=== PATIENT | female | born 1965 | race Caucasian/White ===

== ENCOUNTER 2021-01-21 05:17 | Day surgery (SDC) | payer OTHER, SELFPAY ==
--- NOTE | 2021-01-15 08:26 | EKG12_ITS ---
Test Reason : PRE OP Blood Pressure : / mmHG Vent. Rate : 066 BPM Atrial Rate : 066 BPM P-R Int : 142 ms QRS Dur : 076 ms QT Int : 404 ms P-R-T Axes : 064 030 060 degrees QTc Int : 423 ms Normal sinus rhythm Low voltage QRS Septal infarct , age undetermined , cannot be excluded Abnormal ECG Confirmed by ALYSON SHANKAR, JEREMY ([id number]), magazine editor LAVINIA CHACKO ([id number]) on 01/18/2021 7:26:13 AM Referred By: Kwaku Robert Confirmed By:JEREMY SHIELDS MD
[2021-01-15 10:46] LABS: Hematocrit 43.3 % (37-47); Mean Corp Hgb Conc 32.3 g/dL (32-36); Mean Corpuscular Hgb 29.2 pg (27.0-32.0); Mean Corpuscular Volume 90.4 fL (81-99); Mean Platelet Vol. 10.8 fl (6.2-12.0); Platelet Count 277 K/mm3 (150-450); RBC Distribution Width CV 13.4 % (11.6-14.6); RBC Distribution Width SD 44.6 fl (35.1-43.9); Red Blood Count 4.79 M/mm3 (4.2-5.4); White Blood Count 6.8 K/mm3 (4.4-11.0)
[2021-01-15 11:07] LABS: Anion Gap 6 (5-15); BUN 14 mg/dL (7-18); BUN/Creat Ratio 13.7 RATIO (10-20); Calcium,Total 9.5 mg/dL (8.5-10.1); Chloride 106 mmol/L (98-107); Creatinine, Serum 1.02 mg/dL (0.55-1.02); EST Glomerular Filtration Rate 60 mL/min (>60); Est Glom Filt Rate - Afr Amer 72 mL/min (>60); Glucose 99 mg/dL (74-106); Potassium 4.4 mmol/L (3.5-5.1); Sodium Level 141 mmol/L (136-145)
[2021-01-21] VITALS (10 sets, daily range): BP systolic 92–149; BP diastolic 57–71; PULSE 55–82; RESP 16–18; TEMP 36.2–36.9; O2SAT 94–100; BMI 33.4
[2021-01-21] MEDS: Lactated Ringers 1,000 ML 40 ML IV (05:55)
[2021-01-21 05:57] LABS: Internal QC Validated? YES +Cl - CLEAR BKGD; Pregnancy, Urine Negative Negative
[2021-01-21] MEDS: Gabapentin 600 MG Tablet PO (06:20)
[2021-01-21] MEDS: Acetaminophen 500 MG Tablet 1000 MG PO ×2 (06:20→12:00)
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
[2021-01-21 07:00] LABS: Bedside Glucose 106 mg/dL (70-110)
[2021-01-21] MEDS: Cefazolin 2 GM in 0.9% Normal Saline 100 ML IV (07:25)
--- NOTE | 2021-01-21 07:30 | HYST_PTH ---
PATIENT: CECI MADRID LOC: [facility] [place] U#:[id number] AGE/SX: 55/F ROOM: RE01/21/[address]: Dr. Kwaku Robert MD : 1965 BED: DIS: 01/21/2021 SPEC #: [id number] RECD: 01/21/21 12:47 STATUS: FRANK REHumberto #: [id number] VIKAS: 01/21/21 07:[address]: Kwaku Robert DEPT: SURGICAL PATHOLOGY RECD BY: Lena Sky ENTERED: 01/22/21 08:43 SP TYPE: HYSTERECT OTHR DR: MD Dr. Margie Sheridan DO Tissues: Uterus, NOS Procedures: Surgery Specimen Level V HEADER OPERATION: ERAS, lap robotic TLH hysterectomy, bilateral salpingectomy, cysto PRE-OP DIAGNOSIS: Abnormal uterine and vaginal bleeding TISSUE SUBMITTED: Uterus, cervix and bilateral fallopian tubes MICROSCOPIC DIAGNOSIS Uterus, cervix and bilateral fallopian tubes, hysterectomy and bilateral salpingectomy: Cervix ? chronic inflammation. Endometrium ? proliferative endometrium. Myometrium ? intramural and subserosal leiomyomas. - Focal adenomyosis. Bilateral fallopian tubes - no pathologic diagnosis. SJ:cindy 01/25/2021 MICROSCOPIC DESCRIPTION Slides are reviewed. GROSS DESCRIPTION Received in fixative is one container labeled with the patient's name and designated uterus, cervix, bilateral fallopian tubes. The specimen consists of a hysterectomy specimen consisting of uterus in multiple pieces and detached bilateral fallopian tubes. The uterus in multiple pieces weighs in aggregate 305 gm. The largest piece of uterus with proximal cervix measures 10 x 9 x 9.5 cm. Detached pieces of uterus measures in aggregate 6 x 5 x 3 cm. The ectocervix could not be definitely identified. The uterus is markedly distorted. The anterior and posterior surface could not be oriented. The largest piece of uterus contains the proximal cervix which measures 2 cm in length. The endocervical canal measures 2 cm in length. The endocervical mucosa is unremarkable. Sections of the cervix reveal a few cysts filled with mucoid material. The endometrial cavity measures 4.5 cm in length and up to 3 cm in width. The endometrium is lieberman, glistening without any mass lesion and measures up to 0.2 cm in thickness. Sections of the uterine wall reveal multiple nodular masses, intramural and subserosal in location, largest measuring 3.0 cm in greatest dimension. The uterine wall measures up to 3.5 cm in thickness. Sections of these masses reveal lieberman whorled cut surfaces without areas of hemorrhage, necrosis or cystic degeneration. One fallopian tube measures 5 cm in length and 0.5 cm in diameter. The fimbrial end is identified. .Sections reveal unremarkable cut surfaces. Second fallopian tube measures 3.5 cm in length and 0.5 cm in diameter. The fimbrial end is identified. Sections reveal unremarkable cut surfaces. Shoe Puller sections are submitted in 12 cassettes as follows: 1 - possible ectocervix, 2 - endocervix, 3-6 - uterine wall including endomyometrium, 7 & 8 - largest nodular mass, 9 - second largest nodular mass, 10 - third largest nodular mass, 11 & 12 - bilateral fallopian tubes with each cassette containing one fallopian tube. / ROSE:cindy 01/22/21 TC:1 CPT: 80011
[2021-01-21] MEDS: Ondansetron 4 MG/2 ML Vial IV (10:33)
--- NOTE | 2021-01-21 11:30 | PCM.DC ---
Discharge Instructions Diet Discharge Diet: No restrictions Activity Discharge Activity: Return to Normal Activity, May Drive and May Shower May resume sexual activity in: 4-6 weeks Lifting Restrictions: No lifting over 25 pounds for 2 to 3 weeks Dressing / Incision Call your doctor if your incision/area has: Continuous Slow Oozing and Foul Smelling Discharge Call your doctor if you observe: Fever of 101 or Higher, Shortness of breath and Chest pain Follow Up Care Please Follow Up With: Kwaku Robert MD When: 2 weeks postoperatively Test Results: Test results from this visit will be discussed in further detail at your follow-up appointment, if applicable. Discharge Plan Admission Primary Reason for Your Visit: Hysterectomy Attending Provider: Kwaku Robert Primary Care Provider: Margie Tobin Consulting Providers: Jerzy Barajas Additional Instructions / Restrictions: No lifting over 25 pounds for 2 to 3 weeks[address] No [address] on narcotics. May shower. No tub baths for 2 weeks. Regular diet. Otherwise normal activity. No intercourse for 4 to 6 weeks. Call if fever 101, chest pain, shortness of breath. Follow-up 2 weeks postoperatively, Kwaku Robert MD Discharge Orders/Prescriptions Prescriptions: New oxycodone 5 mg Tablet 5 mg PO Q6H PRN PRN (Reason: Pain Score 7-10/10) 5 Days Qty: 20 RF: 0 Continued sertraline [Zoloft] 100 mg Tablet 100 mg PO DAILY RF: 0 ferrous sulfate 324 mg (65 mg iron) Tablet,Delayed Release (Dr/Ec) 324 mg PO PRN PRN (Reason: DURING MENSES) RF: 0 Referrals / Follow Up: Margie Tobin DO [Primary Care Provider] - Disposition Disposition (needs filled in before D/C Order can be placed): Home, Self Care
--- NOTE | 2021-01-21 12:16 | PCM.OPRPT ---
Report of Operation Date of Procedure: 01/21/21 Pre-Operative Diagnosis: Uterine leiomyomas Post-Operative Diagnosis: Uterine leiomyomas Surgery/Procedure Performed:: Robotic assisted total laparoscopic hysterectomy bilateral salpingectomy, lysis of adhesions, cystoscopy Description of Surgical Findings:: Surgeon: Kwaku Robert MD Anesthesia: General EBL: 50 cc Urine output: 180 cc IV fluids: 1600 cc Complications: None Pathology: Cervix, uterus, leiomyomas, bilateral tubes Findings: Large multiple fibroid uterus noted. Post tubal fallopian tubes noted bilaterally. Large amount of anterior abdominal wall/uterine/vesicouterine adhesions noted, adhesions lysed for greater than 20 minutes. Otherwise normal uterus, tubes, and ovaries. Cystoscopy post procedure with bilateral ureteral jets and no pathology noted. Consent: Patient with abnormal uterine bleeding and leiomyomas in need of robotic assisted total laparoscopic hysterectomy bilateral salpingectomy. Patient understands the risk of the procedure include but are not limited to visceral or vascular injury, prolonged hospitalization, blood loss and need for transfusion, reoperation. Patient state understanding and wished to proceed. All questions were answered and consent was signed. Procedure: Patient was brought back to the OR where general anesthesia was found to be adequate. 2 g of Ancef were given for infection prophylaxis. Patient was prepared and draped in a dorsal lithotomy position with yellowfin stirrups. A weighted speculum is placed in the posterior aspect of vagina and cervical dilators were used to dilate the cervix. Bilateral anchor sutures in the cervix were placed uterine manipulator was placed. Good hemostasis was noted. Varies needle was inserted at the umbilicus, water safety test was passed, abdomen was insufflated did have initial hypotension with pneumo that recovered with decreased pneumo. After recovery abdomen was insufflated. 8 mm supraumbilical midline trocar was inserted under direct visualization. Laparoscope was inserted and above findings were noted. Bilateral lower quadrant 8 mm trochars were inserted under direct visualization. 12 mm left upper quadrant trocar inserted under direct visualization. Right upper quadrant 5 mm trocar inserted under direct visualization. Robot was docked. Using a fenestrated bipolar and monopolar scissors lysis of adhesions as noted above, good hemostasis was noted. Left fallopian tube was identified out to the fimbriae and the mesosalpinx was cut and cauterized. Fallopian tube removed from abdominal cavity and sent to pathology. Left round ligament cut and cauterized anterior and posterior portions of the broad ligament were dissected. Bladder flap was developed beyond the level of the colpotomy cup. Left uterine vessels were identified cut and cauterized, lateralized beyond the level of the colpotomy cup. Right fallopian tube identified out to the fimbriae mesosalpinx cut and cauterized, removed from abdominal cavity and fallopian tube was sent to pathology. Right round ligament was cut and cauterized, anterior and posterior portions of the broad ligament were dissected. Bladder flap was completely developed beyond the level of colpotomy cup. Right uterine vessels were skeletonized cut and cauterized, lateralized beyond the level of the colpotomy cup. Circumferential colpotomy was made. Uterus was removed from the abdominal cavity by vaginally dissecting leiomyomas from abdominal cavity in order to complete uterine removal from abdomen and vagina, all tissue sent to pathology. Good hemostasis was noted. Colpotomy was closed in a continuous running fashion with V-lock suture. Good hemostasis was noted. Cystoscopy was performed and above findings were noted. Abdomen was desufflated. Trochars were removed under direct visualization. 12 mm trocar site fascia was closed with Endo fascial closure device under direct visualization. Good hemostasis was noted. Trocar sites were closed with subcutaneous suture. Good hemostasis was noted. All counts correct x2. Patient tolerated the procedure well and was brought to recovery in a stable condition.
== END 2021-01-21 15:35 | disposition home or self-care (01) ==
LOC: SDC 05:18 → AC 05:19
PROVIDERS: Anesthesiology; PCP Family Medicine; Referring Provider Obstetrics & Gynecology; Visit Provider Obstetrics & Gynecology
PROC: 0UT90ZZ Resection of Uterus, Open Approach (ICD-10-PCS; CPT 840; principal; 2021-01-21 07:10)
DX: D25.1 Intramural leiomyoma of uterus (principal); D25.2 Subserosal leiomyoma of uterus; N80.0 Endometriosis of uterus; K66.0 Peritoneal adhesions (postprocedural) (postinfection); D64.9 Anemia, unspecified; F32.9 Major depressive disorder, single episode, unspecified; Z79.899 Other long term (current) drug therapy
CPT/HCPCS: 00840; 58573; S2900; 36415; 80048; 81025; 82962; 83735; 85027; 87426; 88307; 93005; C9803; J7120; A4216; J2405